=== PATIENT | female | born 1935 | race Caucasian/White ===

== ENCOUNTER → 2016-06-08 | Outpatient (CLI) | payer MEDICARE ==
[~2016-06-08] MED LIST: APIX5TAB PO; ASPI-983 PO; ATOR10TA PO; BENZ100C23 PO; CALC-9 PO; CATHETER FLUSH 10 ML SYR IV PRN; GLIM4TAB PO; LISI40TA PO; REGADENOSON 0.4 MG/5 ML SYR (LEXISCAN) IV ONE
--- OUTSIDE RECORDS SUMMARY | 2016-06-08 09:43 | XMS REPORT ---
Author Author DAMIEN BOSS [facility] Address [address] [place], [place] [id number] Care Team Providers Care Manager Commission Name Role Phone Gail BOSS PCP Unavailable Allergies and Adverse Reactions Name Reaction Notes PENICILLINS Bactrim DS face swells SULFA (SULFONAMIDES) face swells Levaquin itching Plan of Treatment Not available. Medications Active Name Start Date Estimated Completion Date SIG Comments glimepiride 4 mg oral tablet 04/12/2013 TAKE ONE TABLET BY MOUTH EVERY DAY glimepiride 4 mg oral tablet 08/27/2013 TAKE ONE TABLET BY MOUTH EVERY DAY metformin 500 mg oral tablet 10/28/2013 TAKE ONE TABLET BY MOUTH TWICE DAILY WITH MORNING AND EVENING MEALS ReliOn Micro Glucose Monitor miscellaneous mis 12/19/2013 use BID for Diabetes Mellitus II 250.00 ReliOn Glucose Test Strips 12/19/2013 Use BID for Diabetes Mellitus II 250.00 lisinopril 40 mg oral tablet 09/08/2014 TAKE ONE TABLET BY MOUTH ONCE DAILY Contour Test Strips miscellaneous strip 09/30/2014 12/03/2015 USE ONE STRIP TO TEST DAILY. 250.00 glimepiride 4 mg oral tablet 11/03/2014 TAKE ONE TABLET BY MOUTH EVERY DAY Tessalon Perles 100 mg oral capsule 05/25/2015 take 1 capsule (100 mg) by oral route every 4 hours as needed lisinopril 40 mg oral tablet 07/13/2015 TAKE ONE TABLET BY MOUTH ONCE DAILY metformin 500 mg oral tablet 07/13/2015 TAKE ONE TABLET BY MOUTH TWICE DAILY WITH MORNING AND EVENING MEALS Tylenol-Codeine #3 300-30 mg oral tablet 09/14/2015 take 1 - 2 tablets by oral route every 6 hours as needed glimepiride 4 mg oral tablet 10/07/2015 TAKE ONE TABLET BY MOUTH ONCE DAILY Contour Test Strips miscellaneous strip 10/22/2015 USE ONE ONCE DAILY furosemide 40 mg oral tablet 11/18/2015 01/17/2016 take 1 tablet (40 mg) by oral route once daily for 30 days potassium chloride 10 mEq oral capsule, extended release 11/18/2015 take 1 capsule by oral route daily Name Start Date Expiration Date SIG Comments Zithromax Z-Brendan 250 mg oral tablet 02/17/2010 02/22/2010 take 2 tablets (500 mg) by oral route once daily for 1 day then 1 tablet (250 mg) by oral route once daily for 4 days Janumet 50-1,000 mg oral tablet 05/03/2010 06/02/2010 1BID - TAKE ONE TABLET BY MOUTH TWICE DAILY Colestid 5 gram oral packet 08/24/2010 11/22/2010 FF MIX ONE PACKET IN 3 OUNCES (90ML) OF LIQUID AND DRINK DAILY DIRECTED - MIX ONE PACKET IN 3 OUNCES (90ML ) OF LIQUID AND DRINK DAILY Questran 4 gram oral powder in packet 03/31/2011 04/30/2011 take 1 packet (4 gram) dissolved in 2 to 6 ounces of water or noncarbonated beverage by oral route 2 times per day for 30 days Cipro 500 mg oral tablet 01/10/2012 01/10/2012 take 1 tablet (500 mg) by oral route 2 times per day Mucinex 600 mg oral tablet extended release 12hr 01/10/2012 01/20/2012 take 1 tablet (600 mg) by oral route every 12 hours for 10 days lisinopril 10 mg oral tablet 03/20/2012 04/19/2012 TAKE ONE TABLET BY MOUTH EVERY DAY clindamycin HCl 300 mg oral capsule 03/30/2012 04/09/2012 take 1 capsule by oral route 3 times a day for 10 days Zithromax Z-Brendan 250 mg oral tablet 06/19/2012 06/24/2012 take 2 tablets (500 mg ) by oral route once daily for 1 day then 1 tablet (250 mg) by oral route once daily for 4 days glimepiride 4 mg oral tablet 10/29/2012 02/26/2013 take 1 tablet (4 mg) by oral route once daily metformin 500 mg oral tablet 10/29/2012 10/29/2012 take 1 tablet (500 mg) by oral route 2 times per day with morning and evening meals Cipro 500 mg oral tablet 01/01/2013 take 1 tablet (500 mg) by oral route 2 times per day Zithromax Z-Brendan 250 mg oral tablet 04/12/2013 04/17/2013 take 2 tablets ( 500 mg) by oral route once daily for 1 day then 1 tablet (250 mg) by oral route once daily for 4 days Zithromax Z-Brendan 250 mg oral tablet 07/29/2013 take 2 tablets (500 mg) by oral route once daily for 1 day then 1 tablet (250 mg) by oral route once daily for 4 days Celexa 10 mg oral tablet 12/26/2013 03/26/2014 take 1 tablet (10 mg) by oral route once daily for 30 days lisinopril 40 mg oral tablet 01/15/2014 07/14/2014 take 1 tablet (40 mg) by oral route once daily for 30 days Zithromax Z-Brendan 250 mg oral tablet 02/21/2014 02/26/2014 take 2 tablets (500 mg) by oral route once daily for 1 day then 1 tablet (250 mg) by oral route once daily for 4 days Zithromax Z-Brendan 250 mg oral tablet 05/01/2014 05/06/2014 take 2 tablets (500 mg ) by oral route once daily for 1 day then 1 tablet (250 mg) by oral route once daily for 4 days Levaquin 500 mg oral tablet 10/17/2014 10/22/2014 take 1 tablet (500 mg) by oral route once daily x 5 days Ventolin HFA 90 mcg/actuation inhalation HFA aerosol inhaler 10/17/20142014 inhale 1 puff (90 mcg) by inhalation route every 4-6 hours as needed for 7 days Zithromax Z-Brendan 250 mg oral tablet 10/28/2014 11/02/2014 take 2 tablets (500 mg ) by oral route once daily for 1 day then 1 tablet (250 mg) by oral route once daily for 4 days Aspir-81 81 mg oral tablet,delayed release (DR/EC) 11/15/2014 11/10/2015 take 1 tablet (81 mg) by oral route once daily for 30 days Zithromax Z-Brendan 250 mg oral tablet 01/26/2015 01/31/2015 take 2 tablets (500 mg) by oral route once daily for 1 day then 1 tablet (250 mg) by oral route once daily for 4 days Bactrim DS 800-160 mg oral tablet 02/26/2015 03/08/2015 take 1 tablet by oral route 2 times a day for 10 days orphenadrine citrate 100 mg oral tablet extended release 09/25/2015 10/25/2015 take 1 tablet (100 mg) by oral route 2 times per day in the morning and evening for 10 days Discontinued Name Start Date Discontinued Date SIG Comments metformin 500 mg oral tablet 08/01/2011 09/29/2011 TAKE ONE TABLET BY MOUTH TWICE DAILY WITH MORNING AND EVENING MEALS Flonase 50 mcg/actuation nasal spray,suspension 09/29/2011 03/12/2012 spray 1 spray in each nostril by intranasal route 2 times per day Celexa 20 mg oral tablet 09/29/2011 03/12/2012 take 1 tablet (20 mg) by oral route once daily Tradjenta 5 mg oral tablet 09/29/2011 03/12/2012 take 1 tablet (5 mg) by oral route once daily Bactrim DS 800-160 mg oral tablet 03/12/2012 03/19/2012 take 1 tablet by oral route 2 times a day Zyrtec 10 mg oral tablet 12/28/2012 10/17/2014 take 1 tablet (10 mg) by oral route once daily in the evening for allergies / cough promethazine-codeine 6.25-10 mg/5 mL oral syrup 12/28/2012 10/17/2014 take 5 milliliters by oral route every 4-6 hours as needed, not to exceed 30 mL in 24 hours furosemide 20 mg oral tablet 10/21/2013 10/17/2014 take 1 tablet (20 mg) by oral route once daily glimepiride 4 mg oral tablet 01/28/2014 10/17/2014 TAKE ONE TABLET BY MOUTH EVERY DAY Flonase 50 mcg/actuation nasal spray,suspension 02/03/2014 10/17/2014 inhale 1 spray (50 mcg) in each nostril by intranasal route 2 times per day clonidine HCl 0.1 mg oral tablet 03/12/2014 10/17/2014 TAKE ONE TABLET BY MOUTH THREE TIMES DAILY FOR ELEVATED BLOOD PRESSURE Phenergan-Codeine 6.25-10 mg/5 mL oral syrup 05/01/2014 10/17/2014 take 5 milliliters by oral route 4 times a day albuterol sulfate 2.5 mg /3 mL (0.083 %) inhalation solution for nebulization 05/01/2014 10/17/2014 inhale 3 milliliters (2.5 mg) by nebulization route 4 times per day as needed for bronchitis Cipro 500 mg oral tablet 01/22/2015 10/29/2015 take 1 tablet (500 mg) by oral route 2 times per day promethazine-codeine 6.25-10 mg/5 mL oral syrup 05/08/2015 10/29/2015 take 5 milliliters by oral route every 4-6 hours as needed, not to exceed 30 mL in 24 hours Zithromax Z-Brendan 250 mg oral tablet 05/25/2015 10/29/2015 take 2 tablets (500 mg ) by oral route once daily for 1 day then 1 tablet (250 mg) by oral route once daily for 4 days Problem List Description Status Onset Diabetes Mellitus, Type II Active Hyperlipidemia Active Congestive heart failure Active 04/02/2012 Osteoarthrosis, generalized, multiple sites Active 06/04/2012 Depressive Disorder Active 01/19/2013 Edema Active 01/19/2013 Peripheral edema Active 10/21/2013 History of TIA (transient ischemic attack) Active 11/15/2014 Lumbar spondylitis Active 09/16/2015 Degenerative disc disease, lumbar Active 09/16/2015 Noncompliance Active 11/21/2015 Morbid obesity due to excess calories Active 11/21/2015 Vital Signs Date Time BP-Sys(mm[Hg] BP-Bernadette(mm[Hg]) HR(bpm) RR(rpm) Temp WT HT HC BMI BSA BMI Percentile O2 Sat(%) 11/19/2015 3:50:00 PM 140 mmHg 84 mmHg 76 bpm 18 rpm 97.2 F 232 lbs 64 in 39.82 kg/m2 2.18 m2 96 % 11/17/2015 1:53:00 PM 138 mmHg 84 mmHg 65 bpm 18 rpm 98.1 F 238 lbs 64 in 40.8522 kg/m 2.2079 m 96 % 10/29/2015 5:23:00 PM 132 mmHg 76 mmHg 62 bpm 18 rpm 97.6 F 236.437 lbs 98 % 09/15/2015 11:00:00 AM 178 mmHg 80 mmHg 64 bpm 18 rpm 98 F 237 lbs 95 % 09/07/2015 3:08:00 PM 168 mmHg 80 mmHg 72 bpm 18 rpm 98.1 F 239 lbs 64 in 41.02 kg/m2 2.21 m2 95 % 08/27/2015 10:37:00 AM 144 mmHg 86 mmHg 80 bpm 18 rpm 248 lbs 63 in 43.9308 kg/m 2.2361 m 99 % 05/25/2015 11:03:00 AM 155 mmHg 80 mmHg 60 bpm 18 rpm 98.6 F 247 lbs 96 % 02/24/2015 1:59:00 PM 148 mmHg 70 mmHg 66 bpm 18 rpm 99.1 F 244 lbs 63 in 43.2222 kg/m 2.218 m 97 % 01/21/2015 8:38:00 AM 148 mmHg 80 mmHg 58 bpm 18 rpm 97.3 F 241 lbs 63 in 42.69 kg/m2 2.20 m2 98 % 11/11/2014 9:41:00 AM 130 mmHg 80 mmHg 60 bpm 18 rpm 96.4 F 227 lbs 62 in 41.5184 kg/m 2.1223 m 98 % 10/27/2014 8:44:00 AM 140 mmHg 70 mmHg 56 bpm 20 rpm 97.7 F 232 lbs 62.5 in 41.76 kg/m2 2.15 m2 98 % 10/17/2014 5:56:00 PM 134 mmHg 66 mmHg 60 bpm 18 rpm 97.7 F 230.25 lbs 63 in 40.7865 kg/m 2.1546 m 97 % 05/05/2014 10:48:00 AM 17 mmHg 72 mmHg 65 bpm 18 rpm 96.6 F 230.375 lbs 63 in 40.81 kg/m2 2.16 m2 97 % 04/30/2014 10:27:00 AM 116 mmHg 60 mmHg 108 bpm 20 rpm 96.8 F 227 lbs 63 in 40.2108 kg/m 2.1394 m 98 % 02/03/2014 2:55:00 PM 130 mmHg 60 mmHg 50 bpm 18 rpm 98.1 F 243.5 lbs 63 in 43.13 kg/m2 2.22 m2 97 % 01/21/2014 11:27:00 AM 184 mmHg 82 mmHg 62 bpm 20 rpm 98.6 F 246 lbs 63 in 43.5765 kg/m 2.2271 m 98 % 01/06/2014 10:31:00 AM 138 mmHg 60 mmHg 68 bpm 20 rpm 98.5 F 246 lbs 63 in 43.58 kg/m2 2.23 m2 96 % 10/18/2013 9:35:00 AM 150 mmHg 72 mmHg 68 bpm 20 rpm 96 F 253 lbs 63 in 44.8165 kg/m 2.2586 m 94 % 10/01/2013 2:15:00 PM 148 mmHg 72 mmHg 74 bpm 22 rpm 97 F 253 lbs 63 in 44.82 kg/m2 2.26 m2 94 % 07/29/2013 9:10:00 AM 142 mmHg 64 mmHg 64 bpm 22 rpm 97.6 F 248.312 lbs 63 in 43.9861 kg/m 2.2375 m 96 % 01/18/2013 10:14:00 AM 150 mmHg 64 mmHg 64 bpm 20 rpm 97.9 F 256 lbs 63 in 45.35 kg/m2 2.27 m2 96 % 01/01/2013 10:32:00 AM 144 mmHg 68 mmHg 68 bpm 20 rpm 97.3 F 254 lbs 63 in 44.9936 kg/m 2.263 m 95 % 12/04/2012 8:37:00 AM 150 mmHg 70 mmHg 70 bpm 20 rpm 95.8 F 252.437 lbs 63 in 44.72 kg/m2 2.26 m2 94 % 09/03/2012 3:13:00 PM 158 mmHg 60 mmHg 68 bpm 18 rpm 97.7 F 262 lbs 63 in 46.4107 kg/m 2.2984 m 95 % 06/01/2012 8:50:00 AM 150 mmHg 70 mmHg 70 bpm 20 rpm 95.3 F 254.312 lbs 63 in 45.05 kg/m2 2.26 m2 96 % 04/02/2012 8:36:00 AM 136 mmHg 68 mmHg 60 bpm 18 rpm 94.3 F 252 lbs 63 in 44.6393 kg/m 2.2541 m 98 % 03/19/2012 8:52:00 AM 144 mmHg 72 mmHg 60 bpm 18 rpm 96.4 F 250.25 lbs 63 in 44.33 kg/m2 2.25 m2 98 % 03/12/2012 9:00:00 AM 150 mmHg 60 mmHg 60 bpm 18 rpm 96.8 F 244 lbs 63 in 43.2222 kg/m 2.218 m 97 % 01/02/2012 1:49:00 PM 130 mmHg 60 mmHg 60 bpm 18 rpm 97.2 F 240 lbs 63 in 42.51 kg/m2 2.20 m2 96 % 11/28/2011 3:29:00 PM 170 mmHg 80 mmHg 64 bpm 237 lbs 63 in 41.9822 kg/m 2.186 m 09/29/2011 9:25:00 AM 144 mmHg 78 mmHg 56 bpm 228 lbs 63 in 40.39 kg/m2 2.14 m2 98 % 06/29/2011 9:21:00 AM 176 mmHg 82 mmHg 64 bpm 231 lbs 63 in 40.9194 kg/m 2.1581 m 12/06/2010 8:53:00 AM 132 mmHg 70 mmHg 62 bpm 96 % 08/04/2010 9:20:00 AM 144 mmHg 70 mmHg 60 bpm 220 lbs 97 % 07/23/2009 11:14:00 AM 132 mmHg 70 mmHg 76 bpm 229 lbs 06/08/2009 2:30:00 PM 132 mmHg 80 mmHg 72 bpm 235.375 lbs 97 % Social History Name Description Comments Tobacco Never smoker denies alcohol use History of Procedures Date Ordered Description Order Status 08/05/2015 12:00 AM COMPLETE CBC W/AUTO DIFF WBC Returned 08/05/2015 12:00 AM COMPREHEN METABOLIC PANEL Returned 08/05/2015 12:00 AM LIPID PANEL Returned 08/05/2015 12:00 AM GLYCOSYLATED HEMOGLOBIN TEST Returned 08/05/2015 12:00 AM MICROALBUMIN QUANTITATIVE Reviewed 08/05/2015 12:00 AM MAMMOGRAM BOTH BREASTS Returned 09/07/2015 12:00 AM EXTREMITY STUDY Returned 09/08/2015 12:00 AM MRI LUMBAR SPINE W/O DYE Returned 09/15/2015 12:00 AM INJECT SPINE LUMBAR/SACRAL Returned 09/15/2015 12:00 AM Toradol 60 Mg [facility]#4227-0205-23 Reviewed 05/24/2011 12:00 AM ROUTINE VENIPUNCTURE Reviewed 05/24/2011 12:00 AM COMPLETE CBC W/AUTO DIFF WBC Returned 05/24/2011 12:00 AM COMPREHEN METABOLIC PANEL Returned 05/24/2011 12:00 AM LIPID PANEL Returned 05/24/2011 12:00 AM GLYCOSYLATED HEMOGLOBIN TEST Returned 05/24/2011 12:00 AM MICROALBUMIN SEMIQUANT Returned 11/24/2015 12:00 AM X-RAY EXAM OF HIP Returned 03/02/2012 12:00 AM ROUTINE VENIPUNCTURE Reviewed 03/02/2012 12:00 AM COMPLETE CBC W/AUTO DIFF WBC Reviewed 03/02/2012 12:00 AM COMPREHEN METABOLIC PANEL Reviewed 03/02/2012 12:00 AM LIPID PANEL Reviewed 03/02/2012 12:00 AM GLYCOSYLATED HEMOGLOBIN TEST Reviewed 03/02/2012 12:00 AM MICROALBUMIN SEMIQUANT Reviewed 06/01/2012 12:00 AM ROUTINE VENIPUNCTURE Reviewed 06/01/2012 12:00 AM COMPREHEN METABOLIC PANEL Reviewed 06/01/2012 12:00 AM GLYCOSYLATED HEMOGLOBIN TEST Reviewed 09/03/2012 12:00 AM THER/PROPH/DIAG INJ SC/IM Reviewed 09/03/2012 12:00 AM Lasix, Up to 20 Mg [facility]#1436-0942-48 Reviewed 09/07/2012 12:00 AM ROUTINE VENIPUNCTURE Reviewed 09/07/2012 12:00 AM COMPREHEN METABOLIC PANEL Reviewed 07/29/2013 12:00 AM THER/PROPH/DIAG INJ SC/IM Reviewed 07/29/2013 12:00 AM Decadron, 8 Mg [facility]# [address]-73 Reviewed 07/29/2013 12:00 AM Depo-Medrol, Per 80 Mg [facility]#4405-2575-06 Reviewed 08/16/2013 12:00 AM COMPLETE CBC W/AUTO DIFF WBC Reviewed 08/16/2013 12:00 AM COMPREHEN METABOLIC PANEL Reviewed 08/16/2013 12:00 AM GLYCOSYLATED HEMOGLOBIN TEST Reviewed 08/16/2013 12:00 AM LIPID PANEL Reviewed 08/16/2013 12:00 AM ROUTINE VENIPUNCTURE Reviewed 08/16/2013 12:00 AM Dietary Consult Reviewed 08/05/2010 12:00 AM ROUTINE VENIPUNCTURE Reviewed 08/05/2010 12:00 AM COMPLETE CBC W/AUTO DIFF WBC Reviewed 08/05/2010 12:00 AM COMPREHEN METABOLIC PANEL Reviewed 08/05/2010 12:00 AM LIPID PANEL Reviewed 08/05/2010 12:00 AM GLYCOSYLATED HEMOGLOBIN TEST Reviewed 08/26/2014 12:00 AM COMPLETE CBC W/AUTO DIFF WBC Returned 08/26/2014 12:00 AM COMPREHEN METABOLIC PANEL Returned 08/26/2014 12:00 AM GLYCOSYLATED HEMOGLOBIN TEST Returned 08/26/2014 12:00 AM LIPID PANEL Returned 08/26/2014 12:00 AM ROUTINE VENIPUNCTURE Reviewed 10/27/2014 12:00 AM THER/PROPH/DIAG INJ SC/IM Reviewed 10/27/2014 12:00 AM Decadron, Per 1 Mg [facility]# [address]-62 Reviewed 10/27/2014 12:00 AM Depo-Medrol, Per 80 Mg [facility]#8939-3203-65 Reviewed 11/13/2014 12:00 AM EXTRACRANIAL BILAT STUDY Returned 12/06/2010 12:00 AM THER/PROPH/DIAG INJ SC/IM Reviewed 12/06/2010 12:00 AM Decadron Inj.1mg-(Zeyad) [facility] #[id number] Reviewed 12/06/2010 12:00 AM Depo-Medrol 80 Mg Im/St Zeyad [facility] [id number] Reviewed Results Summary Data and Description Results 08/05/2010 4:04 PM TRIGLYCERIDES 153.0 mg/dLCHOLESTEROL 233.0 mg/dLHDL 54.0 mg/ dLLDL 150.0 mg/dLGLYCOHEMOGLOBIN A1C 6.50 %WBC 6.1 RBC 4.56 HGB 13.40 g/dLHCT 40.20 %MCV 88.0 fLMCH 29.40 pgMCHC 33.30 g/dLRDW CV 13.70 %MPV 10.60 fLPLT 320 % NEUT 49.20 %%LYMP 40.50 %%MONO 6.70 %%EOS 2.80 %%BASO 0.80 %#NEUT 3.01 #LYMP 2.48 #MONO 0.41 #EOS 0.17 #BASO 0.05 GLUCOSE 131.0 mg/dLSODIUM 139.0 mmol/ LPOTASSIUM 4.40 mmol/LCHLORIDE 101.0 mmol/LCO2 26.0 mmol/LBUN 10.0 mg/ dLCREATININE 0.70 mg/dLSGOT/AST 28.0 IU/LSGPT/ALT 21.0 IU/LALK PHOS 77.0 IU/ LTOTAL PROTEIN 6.70 g/dLALBUMIN 4.10 g/dLTOTAL BILI 0.40 mg/dLCALCIUM 9.50 mg/ dLeGFR >60 mL/min/1.73 m2 05/24/2011 4:00 PM WBC 4.5 RBC 4.58 HGB 13.60 g/dLHCT 40.30 %MCV 88.0 fLMCH 29.70 pgMCHC 33.70 g/dLRDW CV 13.10 %MPV 11.0 fLPLT 309 %NEUT 47.90 %%LYMP 40.70 %%MONO 8.10 %%EOS 2.60 %%BASO 0.70 %#NEUT 2.17 #LYMP 1.85 #MONO 0.37 #EOS 0.12 #BASO 0.03 CREAT UR 31.50 mg/dLMICROALBUMIN UR 9.0 ug/mLALB:CREAT RATIO 29 TRIGLYCERIDES 138.0 mg/dLCHOLESTEROL 216.0 mg/dLHDL 53.0 mg/dLLDL (CALC) 135.0 mg/dLGLUCOSE 144.0 mg/dLSODIUM 139.0 mmol/LPOTASSIUM 4.40 mmol/LCHLORIDE 102.0 mmol/LCO2 28.0 mmol/LBUN 10.0 mg/dLCREATININE 0.70 mg/dLSGOT/AST 25.0 IU/LSGPT/ ALT 24.0 IU/LALK PHOS 82.0 IU/LTOTAL PROTEIN 6.50 g/dLALBUMIN 4.0 g/dLTOTAL BILI 0.40 mg/dLCALCIUM 8.80 mg/dLeGFR >60 mL/min/1.73 [id number] A1C 6.80 % 03/02/2012 2:18 PM CREAT UR 18.10 mg/dLMICROALBUMIN UR 1.0 ug/mLALB:CREAT RATIO 6 WBC 5.0 RBC 4.53 HGB 13.30 g/dLHCT 39.70 %MCV 88.0 fLMCH 29.40 pgMCHC 33.50 g/dLRDW CV 13.70 %MPV 10.10 fLPLT 329 %NEUT 46.20 %%LYMP 41.90 %%MONO 7.90 %%EOS 3.20 %%BASO 0.80 %#NEUT 2.29 #LYMP 2.08 #MONO 0.39 #EOS 0.16 #BASO 0.04 GLUCOSE 129.0 mg/dLSODIUM 140.0 mmol/LPOTASSIUM 4.70 mmol/LCHLORIDE 107.0 mmol/LCO2 26.0 mmol/LBUN 10.0 mg/dLCREATININE 0.70 mg/dLSGOT/AST 29.0 IU/LSGPT/ ALT 25.0 IU/LALK PHOS 84.0 IU/LTOTAL PROTEIN 6.80 g/dLALBUMIN 3.80 g/dLTOTAL BILI 0.40 mg/dLCALCIUM 9.0 mg/dLeGFR 60 TRIGLYCERIDES 119.0 mg/dLCHOLESTEROL 235.0 mg/dLHDL 55.0 mg/dLLDL (CALC) 156.0 mg/dLGLYCOHEMOGLOBIN A1C 6.90 % 06/01/2012 3:40 PM GLUCOSE 159.0 mg/dLSODIUM 140.0 mmol/LPOTASSIUM 4.40 mmol/ LCHLORIDE 105.0 mmol/LCO2 25.0 mmol/LBUN 15.0 mg/dLCREATININE 0.70 mg/dLSGOT/ AST 35.0 IU/LSGPT/ALT 34.0 IU/LALK PHOS 88.0 IU/LTOTAL PROTEIN 6.50 g/dLALBUMIN 3.80 g/dLTOTAL BILI 0.40 mg/dLCALCIUM 8.70 mg/dLeGFR 60 GLYCOHEMOGLOBIN A1C 7.20 % 09/03/2012 12:00 AM Diabetic Foot Exam Diabetic foot examination Colorectal Discussed options with Pt Urinary Incontinence Assessed Yes Diabetic Foot Exam Diabetic foot examination 09/07/2012 2:12 PM GLUCOSE 184.0 mg/dLSODIUM 140.0 mmol/LPOTASSIUM 4.30 mmol/ LCHLORIDE 102.0 mmol/LCO2 26.0 mmol/LBUN 15.0 mg/dLCREATININE 0.70 mg/dLSGOT/ AST 37.0 IU/LSGPT/ALT 38.0 IU/LALK PHOS 86.0 IU/LTOTAL PROTEIN 6.50 g/dLALBUMIN 3.60 g/dLTOTAL BILI 0.50 mg/dLCALCIUM 8.60 mg/dLeGFR 60 12/04/2012 9:03 AM Diabetic Foot Exam Diabetic foot examination 08/16/2013 5:26 PM GLUCOSE 98.0 mg/dLSODIUM 138.0 mmol/LPOTASSIUM 4.40 mmol/ LCHLORIDE 106.0 mmol/LCO2 25.0 mmol/LBUN 12.0 mg/dLCREATININE 0.70 mg/dLSGOT/ AST 33.0 IU/LSGPT/ALT 34.0 IU/LALK PHOS 74.0 IU/LTOTAL PROTEIN 6.30 g/dLALBUMIN 3.50 g/dLTOTAL BILI 0.30 mg/dLCALCIUM 8.20 mg/dLeGFR 60 TRIGLYCERIDES 142.0 mg/ dLCHOLESTEROL 248.0 mg/dLHDL 76.0 mg/dLLDL (CALC) 144.0 mg/dLWBC 5.5 RBC 4.43 HGB 13.0 g/dLHCT 39.70 %MCV 90.0 fLMCH 29.30 pgMCHC 32.70 g/dLRDW CV 13.80 %MPV 10.60 fLPLT 286 %NEUT 48.0 %%LYMP 40.70 %%MONO 8.20 %%EOS 2.60 %%BASO 0.50 %# NEUT 2.63 #LYMP 2.23 #MONO 0.45 #EOS 0.14 #BASO 0.03 HGB A1C 7.20 %Est Avg Glucose 159.9 mg/dL 08/26/2014 4:18 PM GLUCOSE 159.0 mg/dLSODIUM 139.0 mmol/LPOTASSIUM 4.30 mmol/ LCHLORIDE 105.0 mmol/LCO2 23.0 mmol/LBUN 8.0 mg/dLCREATININE 0.70 mg/dLSGOT/AST 34.0 IU/LSGPT/ALT 31.0 IU/LALK PHOS 78.0 IU/LTOTAL PROTEIN 6.50 g/dLALBUMIN 3.0 g/dLTOTAL BILI 0.90 mg/dLCALCIUM 8.90 mg/dLeGFR >60 mL/min/1.73 [id number] 144.0 mg/dLCHOLESTEROL 227.0 mg/dLHDL 50.0 mg/dLLDL (CALC) 148.0 mg/dLHGB A1C 6.90 %Est Avg Glucose 151.3 mg/dLWBC 5.1 RBC 4.15 HGB 12.50 g/dLHCT 37.70 %MCV 91.0 fLMCH 30.10 pgMCHC 33.20 g/dLRDW CV 13.30 %MPV 10.30 fLPLT 309 %NEUT 51.30 %%LYMP 38.80 %%MONO 6.40 %%EOS 2.90 %%BASO 0.60 %#NEUT 2.63 #LYMP 1.99 #MONO 0.33 #EOS 0.15 #BASO 0.03 08/18/2015 8:50 AM WBC 4.0 RBC 4.51 HGB 13.30 g/dLHCT 40.90 %MCV 91.0 fLMCH 29.50 pgMCHC 32.50 g/dLRDW CV 13.10 %MPV 9.40 fLPLT 231 %NEUT 47.90 %%LYMP 37.50 %%MONO 8.50 %%EOS 4.80 %%BASO 1.0 %#NEUT 1.92 #LYMP 1.50 #MONO 0.34 #EOS 0.19 #BASO 0.04 GLUCOSE 145.0 mg/dLSODIUM 142.0 mmol/LPOTASSIUM 4.20 mmol/ LCHLORIDE 107.0 mmol/LCO2 27.0 mmol/LBUN 9.0 mg/dLCREATININE 0.70 mg/dLSGOT/AST 35.0 IU/LSGPT/ALT 31.0 IU/LALK PHOS 82.0 IU/LTOTAL PROTEIN 6.60 g/dLALBUMIN 4.0 g/dLTOTAL BILI 0.40 mg/dLCALCIUM 9.30 mg/dLeGFR >60 mL/min/1.73mTRIGLYCERIDES 103.0 mg/dLCHOLESTEROL 213.0 mg/dLHDL 51.0 mg/dLLDL (CALC) 141.0 mg/ dLHemoglobin A1c 7.20 % History Of Immunizations Not available. History of Past Illness Name Date of Onset Comments Hyperlipidemia, unspecified Jun 08 2009 2:32PM Diabetes Mellitus, Type II Jun 08 2009 2:32PM Abdominal Pain Jun 08 2009 2:32PM Diarrhea Jun 08 2009 2:32PM Eustachian Tube Dysfunction Jun 08 2009 2:32PM Depressive Disorder Jul 23 2009 11:16AM Diabetes Mellitus, Type II Jul 23 2009 11:16AM Diabetes Mellitus, Type II Hyperlipidemia Congestive heart failure 04/02/2012 Osteoarthrosis, generalized, multiple sites 06/04/2012 Murmur Depressive Disorder 01/19/2013 Edema 01/19/2013 Peripheral edema 10/21/2013 History of TIA (transient ischemic attack) 11/15/2014 Lumbar spondylitis 09/16/2015 Degenerative disc disease, lumbar 09/16/2015 Noncompliance 11/21/2015 Morbid obesity due to excess calories 11/21/2015 Diabetes Mellitus, Type II Aug 05 2010 8:52AM Hyperlipidemia Aug 05 2010 8:52AM Diabetes Mellitus, Type II Aug 04 2010 9:20AM Hyperlipidemia, unspecified Aug 04 2010 9:20AM General Medical Exam, Adult Aug 04 2010 9:20AM Pain in joint; Right Hip Dec 06 2010 8:52AM Pain in joint; shoulder region, Left Dec 06 2010 8:52AM Nasopharyngitis, Acute (Common Cold) Dec 06 2010 8:52AM Hypertension May 24 2011 9:02AM Diabetes Mellitus, Type II May 24 2011 9:02AM Hyperlipidemia May 24 2011 9:02AM Essential Hypertension Jun 29 2011 9:22AM Diabetes Mellitus, Type II Jun 29 2011 9:22AM Headache Jun 29 2011 9:22AM Depressive Disorder Jun 29 2011 9:22AM Obesity Jun 29 2011 9:22AM Diabetes Mellitus, Type II Sep 29 2011 9:27AM Depressive Disorder Sep 29 2011 9:27AM Seasonal Allergies Sep 29 2011 9:27AM Eustachian Tube Dysfunction Sep 29 2011 9:27AM Diabetes Mellitus, Type II Nov 28 2011 3:33PM Hyperlipidemia, unspecified Nov 28 2011 3:33PM Cerebrovascular Accident (CVA) Nov 28 2011 3:33PM Depressive Disorder Nov 28 2011 3:33PM Fatigue Nov 28 2011 3:33PM General Medical Exam, Adult Nov 28 2011 3:33PM Essential Hypertension Jan 02 2012 1:53PM Diabetes Mellitus, Type II Jan 02 2012 1:53PM Hyperlipidemia, unspecified Jan 02 2012 1:53PM Hypertension Mar 02 2012 8:41AM Diabetes Mellitus, Type II Mar 02 2012 8:41AM Hyperlipidemia Mar 02 2012 8:41AM Essential Hypertension Mar 12 2012 9:00AM Diabetes Mellitus, Type II Mar 12 2012 9:00AM Hyperlipidemia, unspecified Mar 12 2012 9:00AM Cellulitis Mar 12 2012 9:00AM General Medical Exam, Adult Mar 12 2012 9:00AM Cellulitis Mar 19 2012 8:53AM Congestive Heart Failure Apr 02 2012 8:37AM Diabetes Mellitus, Type II Apr 02 2012 8:37AM Hyperlipidemia, unspecified Apr 02 2012 8:37AM Osteoarthrosis, generalized, multiple sites Apr 02 2012 8:37AM Edema Apr 02 2012 8:37AM Cellulitis Apr 02 2012 8:37AM Diabetes Mellitus, Type II Jun 01 2012 8:51AM Hyperlipidemia, unspecified Jun 01 2012 8:51AM Osteoarthrosis, generalized, multiple sites Jun 01 2012 8:51AM Edema Jun 01 2012 8:51AM Obesity Jun 01 2012 8:51AM Congestive Heart Failure Sep 03 2012 3:14PM Diabetes Mellitus, Type II Sep 03 2012 3:14PM Edema Sep 03 2012 3:14PM Exercise Counseling Sep 03 2012 3:14PM Dietary Counseling Sep 03 2012 3:14PM Diabetes Mellitus, Type II Sep 07 2012 9:29AM Congestive Heart Failure Dec 04 2012 8:37AM Diabetes Mellitus, Type II Dec 04 2012 8:37AM Exercise Counseling Dec 04 2012 8:37AM Dietary Counseling Dec 04 2012 8:37AM Hyperlipidemia Dec 04 2012 8:37AM Cough Jan 01 2013 10:33AM Bronchitis, Acute Jan 01 2013 10:33AM Post-nasal drainage Jan 01 2013 10:33AM Congestive Heart Failure Jan 18 2013 10:15AM Diabetes Mellitus, Type II Jan 18 2013 10:15AM Hyperlipidemia, unspecified Jan 18 2013 10:15AM Osteoarthrosis, generalized, multiple sites Jan 18 2013 10:15AM Depressive Disorder Jan 18 2013 10:15AM Edema Jan 18 2013 10:15AM Exercise Counseling Jan 18 2013 10:15AM Dietary Counseling Jan 18 2013 10:15AM Post-nasal drainage Jul 29 2013 9:10AM Upper Respiratory Infection Jul 29 2013 9:10AM Allergic Rhinitis Jul 29 2013 9:10AM Congestive Heart Failure Aug 16 2013 8:44AM Edema Aug 16 2013 8:44AM Diabetes Mellitus, Type II Aug 16 2013 8:44AM Hyperlipidemia Aug 16 2013 8:44AM FPC medication use Aug 16 2013 8:44AM Diabetes Mellitus, Type II Aug 16 2013 1:18PM Knee pain, acute, right Oct 01 2013 2:15PM Knee abrasion, right, initial encounter Oct 01 2013 2:15PM Congestive Heart Failure Oct 18 2013 9:35AM Eustachian Tube Dysfunction, Bilateral Oct 18 2013 9:35AM Peripheral edema Oct 18 2013 9:35AM Essential Hypertension Jan 06 2014 10:31AM Diabetes Mellitus, Type II Jan 06 2014 10:31AM Tendinitis Jan 06 2014 10:31AM Obesity Jan 06 2014 10:31AM Dietary Counseling Jan 06 2014 10:31AM Exercise Counseling Jan 06 2014 10:31AM Shoulder pain, right Jan 06 2014 10:31AM Physical deconditioning Jan 06 2014 10:31AM Peripheral edema Jan 06 2014 10:31AM Hyperlipidemia Jan 06 2014 10:31AM Essential Hypertension Jan 21 2014 11:27AM Non compliance w medication regimen Jan 21 2014 11:27AM Essential Hypertension Feb 03 2014 2:56PM Eustachian tube dysfunction, bilateral Feb 03 2014 2:56PM Cough Apr 30 2014 10:28AM Bronchitis, Acute Apr 30 2014 10:28AM Influenza Apr 30 2014 10:28AM Cough May 05 2014 10:49AM Bronchitis, Acute May 05 2014 10:49AM Respiratory System And Chest Symptoms May 05 2014 10:49AM Congestive Heart Failure Aug 26 2014 10:10AM Edema Aug 26 2014 10:10AM Diabetes Mellitus, Type II Aug 26 2014 10:10AM Hyperlipidemia Aug 26 2014 10:10AM exterminator helper termite medication use Aug 26 2014 10:10AM Bronchitis, Acute Oct 17 2014 5:58PM Sinusitis, Acute Oct 17 2014 5:58PM Seasonal Allergies Oct 27 2014 8:45AM Respiratory System And Chest Symptoms Oct 27 2014 8:45AM TIA (transient ischemic attack) Nov 13 2014 3:03PM Congestive Heart Failure Nov 11 2014 9:42AM Edema Nov 11 2014 9:42AM Obesity Nov 11 2014 9:42AM History of TIA (transient ischemic attack) Nov 11 2014 9:42AM Peripheral edema Nov 11 2014 9:42AM Diabetes Mellitus, Type II Nov 11 2014 9:42AM Hyperlipidemia Nov 11 2014 9:42AM Cough Jan 21 2015 8:38AM Bronchitis, Acute Jan 21 2015 8:38AM Moderate Acute Cough Feb 24 2015 1:59PM Acute bronchitis, unspecified organism Feb 24 2015 1:59PM Moderate Acute Post-nasal drainage Feb 24 2015 1:59PM Mild Acute Upper Respiratory Infection Feb 24 2015 1:59PM Mild Acute Nasopharyngitis, Acute (Common Cold) May 25 2015 11:03AM Mild Acute Post-nasal drainage May 25 2015 11:03AM Grieving b 2015 11:03AM Reactive depression May 25 2015 11:03AM Insomnia, unspecified type b 2015 11:03AM Diabetes Mellitus, Type II Aug 05 2015 9:38AM Hyperlipidemia Aug 05 2015 9:38AM Screening for breast cancer Aug 05 2015 9:38AM Morbid obesity due to excess calories Aug 31 2015 11:29AM Moderate Acute Shoulder joint painful on movement, left Aug 31 2015 11:29AM Moderate Acute Shoulder tendonitis, left Aug 31 2015 11:29AM Mild Acute Back strain, initial encounter Aug 31 2015 11:29AM Thigh pain Sep 07 2015 2:38PM Moderate Acute Lower extremity pain, inferior, right Sep 07 2015 3:09PM Acute Radicular pain Unresponsive to treatment Sep 08 2015 2:37PM Lumbar spondylosis Sep 15 2015 9:25AM Type 2 diabetes mellitus with hyperglycemia Sep 15 2015 11:01AM Right-sided low back pain with right-sided sciatica Sep 15 2015 11:01AM Morbid obesity due to excess calories Sep 15 2015 11:01AM Dietary Counseling Sep 15 2015 11:01AM Exercise Counseling Sep 15 2015 11:01AM History of TIA (transient ischemic attack) Sep 15 2015 11:01AM Osteoarthrosis, generalized, multiple sites Sep 15 2015 11:01AM Lumbar spondylitis Sep 15 2015 11:01AM Degenerative disc disease, lumbar Sep 15 2015 11:01AM Elevated blood pressure Sep 15 2015 11:01AM Cellulitis of left lower leg Improving Oct 29 2015 5:25PM Essential hypertension with goal blood pressure less than 130/80 Nov 17 2015 1:54PM Type 2 diabetes mellitus with hyperglycemia Nov 17 2015 1:54PM Chronic right-sided low back pain with right-sided sciatica Nov 17 2015 1: 54PM Obesity Nov 17 2015 1:54PM Dietary Counseling Nov 17 2015 1:54PM Exercise Counseling Nov 17 2015 1:54PM Degenerative disc disease, lumbar Nov 17 2015 1:54PM Lumbar spondylitis Nov 17 2015 1:54PM Peripheral edema Nov 17 2015 1:54PM Type 2 diabetes mellitus with hyperglycemia Nov 19 2015 3:51PM Acute right-sided low back pain with right-sided sciatica Nov 19 2015 3:51PM Morbid obesity due to excess calories Nov 19 2015 3:51PM Dietary Counseling Nov 19 2015 3:51PM Exercise Counseling Nov 19 2015 3:51PM Degenerative disc disease, lumbar Nov 19 2015 3:51PM History of TIA (transient ischemic attack) Nov 19 2015 3:51PM Lumbar spondylitis Nov 19 2015 3:51PM Osteoarthrosis, generalized, multiple sites Nov 19 2015 3:51PM Peripheral edema Nov 19 2015 3:51PM Hyperlipidemia Nov 19 2015 3:51PM Mild Noncompliance Nov 19 2015 3:51PM Hip pain Nov 24 2015 2:04PM Payers Insurance Name Company Name Plan Name Plan Number Policy Number Policy Group Number Start Date Medicare Part A Medicare RHC [id number] N/A Medicare Part B Medicare Of [place] [id number] Sunday, 2008 Medicare Part A Medicare Part A [id number] N/A Medicare Part A Medicare - Lab/Xray [id number] N/A History of Encounters Visit Date Visit Type Provider 11/19/2015 Office visit DAMIEN SNYDER 11/17/2015 Office visit DAMIEN SNYDER 10/29/2015 Office visit Blaise Camacho OPERATIONS ADMINISTRATIVE ASSISTANT 09/15/2015 Office visit DAMIEN BOSS PA 09/07/2015 Office visit DAMIEN BOSS PA 08/27/2015 Office visit DAMIEN BOSS PA 05/25/2015 Office visit DAMIEN BOSS PA 02/24/2015 Office visit DAMIEN BOSS PA 01/21/2015 Office visit DAMIEN BOSS PA 11/11/2014 Office visit DAMIEN BOSS PA 10/27/2014 Office visit 10/27/2014 Office visit DAMIEN BOSS PA 10/17/2014 Office visit Shanique Sorensen ASHLEY 08/26/2014 Office visit DAMIEN BOSS PA 05/05/2014 Office visit DAMIEN SNYDER 04/30/2014 Office visit DAMIEN SNYDER 04/19/2014 [facility] Gail Bai MD 02/03/2014 Office visit DAMIEN BOSS PA 01/21/2014 Office visit DAMIEN SNYDER 01/06/2014 Office visit DAMIEN SNYDER 01/01/2014 [facility] Gail Bai MD 10/18/2013 Office visit DAMIEN SNYDER 10/01/2013 Office visit DAMIEN BOSS PA 08/16/2013 Office visit DAMIEN SNYDER 07/29/2013 Office visit DAMIEN SNYDER 04/09/2013 Records Request DAMIEN BOSS PA 01/18/2013 Office visit DAMIEN BOSS PA 01/01/2013 Office visit DAMIEN BOSS PA 12/04/2012 Office visit DAMIEN BOSS PA 09/07/2012 Office visit DAMIEN BOSS PA 09/03/2012 Office visit DAMIEN BOSS PA 06/01/2012 Office visit DAMIEN BOSS PA 04/02/2012 Office visit DAMIEN BOSS PA 03/19/2012 Office visit DAMIEN BOSS PA 03/12/2012 Office visit DAMIEN BOSS PA 03/02/2012 Office visit DAMIEN BOSS PA 01/02/2012 Office visit DAMIEN BSOS PA 11/28/2011 Office visit DAMIEN BOSS PA 09/29/2011 Office visit DAMIEN BOSS PA 06/29/2011 Office visit DAMIEN BOSS PA 05/24/2011 Office visit DAMIEN SNYDER 12/06/2010 Office visit Damien HANNAC 08/05/2010 Office visit Damien HANNAC 08/04/2010 Office visit Damien HANNAC 07/23/2009 Office visit Damien HANNAC 06/08/2009 Office visit Damien HANNAC 05/18/2009 Laboratory Rose Barrett MD 05/15/2009 Hospital Rose Barrett MD 01/08/2009 Office visit Damien Boss PA-C 12/17/2008 Office visit DAMIEN SNYDER
[2016-06-08 13:03] VITALS: BP 142/64
--- NOTE | 2016-06-09 08:30 | STRESS TEST ---
PROCEDURE PHYSICIAN: ISHAN DEL ROSARIO DATE OF PROCEDURE: 06/08/2016 LEXISCAN MYOVIEW STRESS TEST REPORT: INDICATION FOR THE PROCEDURE: Atrial fibrillation. BASELINE HEART RATE: 65 BASELINE BLOOD PRESSURE: 142/64 BASELINE EKG: Atrial fibrillation with no ischemic changes. IN SUMMARY: The patient was injected with 10.51 mCi of technetium 99 Myoview and the resting images were obtained. Then the patient received 0.4 mg of Lexiscan followed by 29.3 mCi of technetium 99 Myoview. Throughout the test, there were no EKG changes. The resting and stress images were reviewed and compared in the short axis, horizontal long axis, and vertical long axis views. Review of the images showed breast attenuation affecting the quality of the images. There is questionable ischemia involving the basal to mid anterior wall and anterolateral wall. SSS 5, SDS 5, TID value 0.92. On the gated images, the left ventricle appeared to be normal size with mild hypokinesia noted diffusely. Calculated ejection fraction 48%. Gated images are unreliable due to underlying atrial fibrillation. IN CONCLUSION: 1. The patient tolerated Lexiscan well. 2. Breast attenuation affecting the quality of the images with questionable mild ischemia involving the basal to mid anterior wall and anterolateral wall. 3. Normal left ventricular size with mild diffuse left ventricular hypokinesia. Calculated ejection fraction 48%. Gated images are unreliable due to underlying atrial fibrillation. Job ID: [id number] Dictated Date: 06/08/2016 18:25:01 Skilled Nursing Facility Counselor Date: 06/09/2016 08:27:19 / alley
== END ==
LOC: CARD 09:36
PROVIDERS: ATTEND Physician Assistant
DX: I48.91 Unspecified atrial fibrillation (principal); I35.0 Nonrheumatic aortic (valve) stenosis; I50.9 Heart failure, unspecified; R60.9 Edema, unspecified; R06.02 Shortness of breath
CPT/HCPCS: 78452; 93017

== ENCOUNTER 2016-06-22 09:06 | Day surgery (SDC) | payer MEDICARE ==
[~2016-06-22] VITALS: Ht 160 cm; Wt 101.2 kg
[2016-06-22] VITALS (13 sets, daily range): BP systolic 115–141; BP diastolic 56–99
[2016-06-22] MEDS ORDERED: NS IV 1000 ML 1,000 ML ONE (09:53)
[2016-06-22] MEDS ORDERED: HEParin (CATH LAB) 2,000 ML IV ONE (09:53)
[2016-06-22] MEDS ORDERED: LIDOCAINE 1% INJ 20 ML (XYLOCAINE) VIAL ONE (09:53)
[2016-06-22 10:39] LABS: MEAN PLATELET VOLUME 9.3 FL (7.4-10.4); RED BLOOD COUNT 4.34 10^6/uL (4.35-5.85); RED CELL DISTRIBUTION WIDTH 13.6 % (10.0-14.5)
[2016-06-22 10:51] LABS: PROTHROMBIN TIME PATIENT 12.8 SEC (12.2-14.7)
[2016-06-22 11:00] LABS: ALANINE AMINOTRANSFERASE 18 U/L (0-55); ALBUMIN 3.8 G/DL (3.2-4.5); ANION GAP 11 MMOL/L (5-14); ASPARTATE AMINO TRANSFERASE 27 U/L (5-34); BILIRUBIN,TOTAL 0.5 MG/DL (0.1-1.0); BLOOD UREA NITROGEN 11 MG/DL (7-18); BUN/CREATININE RATIO 14; CALCIUM 8.6 MG/DL (8.5-10.1); CARBON DIOXIDE 25 MMOL/L (21-32); CHLORIDE 106 MMOL/L (98-107); CHOLESTEROL 209 MG/DL (< 200); CREATININE SERUM 0.81 MG/DL (0.60-1.30); DIRECT LDL 143 MG/DL (1-129); GFR ESTIMATED > 60; GLUCOSE 144 MG/DL (70-105); POTASSIUM 4.1 MMOL/L (3.6-5.0); SODIUM 142 MMOL/L (135-145); TOTAL PROTEIN 6.7 G/DL (6.4-8.2); TRIGLYCERIDES 110 MG/DL (<150); VLDL CHOLESTEROL 22 MG/DL (5-40)
--- NOTE | 2016-06-22 11:03 | Diagnostic Imaging Report ---
EXAMINATION: Portable upright radiograph of the chest. INDICATION: Dyspnea. Hypertension. FINDINGS: The lungs are clear. The heart size is moderately enlarged. No effusion or pneumothorax. The mediastinum and aman appear unremarkable. IMPRESSION: Cardiomegaly. Clear lungs. Dictated by: Dictated on workstation # [id number]
[2016-06-22] MEDS ORDERED: LISI40TA PO (11:22)
[2016-06-22] MEDS ORDERED: APIX5TAB PO (11:22)
[2016-06-22] MEDS ORDERED: ASPI-983 PO (11:22)
[2016-06-22] MEDS ORDERED: GLIM4TAB PO (11:22)
[2016-06-22] MEDS ORDERED: BENZ100C23 PO (11:22)
[2016-06-22] MEDS ORDERED: CALC-9 PO (11:22)
[2016-06-22] MEDS ORDERED: NS IV 1000 ML 1,000 ML IV SCH ×2 (11:45→13:17)
[2016-06-22] MEDS ORDERED: FLU TRIvalent (5 YOA+) 2016-17 (AFLURIA) 0.5 ML IM ONE (11:45)
[2016-06-22] MEDS ORDERED: MIDAZOLAM 5 MG/5 ML (VERSED) VIAL ONE (12:15)
[2016-06-22] MEDS ORDERED: fentaNYL INJECTION 100 MCG/2 ML AMP ONE (12:15)
--- NOTE | 2016-06-22 12:44 | Cardiac Procedure Note-CS/ASA ---
Pre-Procedure Note Pre-Op Procedure Note H&P Reviewed The H&P was reviewed, patient examined and no changes noted. Date H&P Reviewed: Jun 22, 2016 Time H&P Reviewed: 12:44 Conscious Sedation Pre-Proced Time Reviewed: 12:44 ASA Class: 3 Airway Mallampati Classification: (soboba appropriate class) I. II. III, IV Lungs Heart ASA score ASA 1: a normal healthy patient ASA 2: a patient with a mild systemic disease (mid diabetes, controlled hypertension, obesity X ASA 3: a patient with a severe systemic disease that limits activity (angina , COPD, prior Myocardial infarction) ASA 4: a patient with an incapacitating disease that is a constant threat to life (CHF, renal failure) ASA 5: a moribund patient not expected to survive 24 hrs. (ruptured aneurysm) ASA 6: a declared brain patient whose organs are being harvested. For emergent operations, add the letter E after the classification Grade 3 Sedation Plan: Analgesia, Amnesia, Plan communicated to team members, Discussed options with patient/fam, Discussed risks with patient/fam Note The patient is an appropriate candidate to undergo the planned procedure, sedation, and anesthesia. The patient immediately re-assessed prior to indication. ISHAN DEL ROSARIO MD Jun 22, 2016 12:44
--- NOTE | 2016-06-22 13:19 | Discharge Inst-Post CATH ---
Discharge Inst-CATH Post Cardiac Cath D/C Inst Follow Up/Plan Appointment with Dr Key's office in 2-4 weeks CARDIAC CATH DISCHARGE INSTRUCTIONS *Hold Metformin for 48 hours post heart cath. ACTIVITY * Go Home directly and rest. * Limit activity of the leg (or wrist if it was used) for 7 days including aerobics, swimming, jogging, bicycling, etc. * Restrict stair-climbing for 7 days if possible, if not, climb up with your non -cath leg, then bring together on the same step. * Avoid lifting, pushing, pulling or excessive movement of the affected extremity for 7 days. * Customary sexual activity may be resumed after 2 days-use caution not to use a position that strains or causes pain to the affected extremity. * No driving for 24 hours. * NO SMOKING. * Avoid straining for bowel movements for 7 days. * Gentle walking on level ground is allowed. * Returning to work will depend on the type of procedure and the results. Your doctor will discuss this with you. CALL YOUR DOCTOR FOR ANY OF THE FOLLOWING: *If bleeding from the puncture site occurs- Apply gentle pressure to site with clean cloth and call your doctor or EMS. * If a knot or lump forms under the skin, increases in size, or causes pain. * If bruising appears to be worsening or moving further down your leg instead of disappearing. * Temperature above 101 F. CARE OF YOUR GROIN INCISION; * Bruising or purple discoloration of the skin near the puncture site is common. * You may shower only, no bathtub bathing for 5 days. Be careful to avoid slipping as your leg may feel stiff. * If a closure device was used on your femoral artery, please see the attached guide regarding care of the device and your leg. * REMOVE the dressing from your groin the next day after your procedure in the shower. CARE OF YOUR WRIST INCISION; * Bruising or purple discoloration of the skin near the puncture site is common. * You may shower. * DO NOT submerge wrist. * Remove dressing in 24 hours. ISHAN KEY MD Jun 22, 2016 13:19
[2016-06-22] MEDS ORDERED: ATOR10TA PO (13:24)
[2016-06-22] MEDS ORDERED: PATIENT MAY USE OWN MEDS, ALL PO SCH (13:30)
--- NOTE | 2016-06-23 09:09 | DISCHARGE SUMMARY ---
PROCEDURE PHYSICIAN: ISHAN DEL ROSARIO DATE OF PROCEDURE: 06/22/2016. REFERRING PHYSICIAN: Dr. Jose Perez BRIEF HISTORY: Mrs. Garcia is an 81-year-old lady with history of hypertension, hyperlipidemia and diabetes mellitus. The patient had an abnormal stress test with anterior wall ischemia. She was scheduled for left heart catheterization, possible PTCA. PROCEDURE NOTE: After explaining the procedure to the patient, all pros and cons were explained. All questions were answered. The patient signed a consent, then she was placed on the cardiac catheterization laboratory. The right groin was prepped in a sterile fashion. Local anesthesia applied right groin. 6-Bahamian sheath was placed in the right femoral artery. I had difficulty advancing the J-wire through the iliac artery. I used. It was slightly tortuous. Combination of right and left Jim catheter were used to access the right and left coronary system. Multiple views were obtained. Pigtail catheter advanced to the left ventricular cavity. Pressure was measured, no left ventriculogram was done. Pullback LV to aorta was done. Aortic arch angiogram was done. At the end of the procedure, sheath was removed. Mynx device deployed. Hemostasis achieved. FINDINGS: HEMODYNAMIC: LV pressure 106/11, end-diastolic pressure of 11, aortic pressure 103/47, mean of 66. ANATOMY: 1. LEFT MAIN CORONARY ARTERY: The left main coronary artery is bifurcating to left anterior descending and left circumflex artery with no obstructive disease. 2. LEFT ANTERIOR DESCENDING ARTERY: The left anterior descending artery is moderate in size with mild disease distally. Nonobstructive disease. 3. LEFT CIRCUMFLEX ARTERY: The left circumflex artery is moderate in size with mild disease. Nonobstructive disease. 4. RIGHT CORONARY ARTERY: The right coronary artery is moderate in size with no obstructive disease. Mild disease distally. 5. LEFT VENTRICULOGRAM: No left ventriculogram was done. Pressure was normal. 6. AORTIC ARCH ANGIOGRAM: Aortic arch angiogram showed the aortic arch is normal in size. No dissection, no aneurysm was noted. Mild atherosclerotic disease was noted. CONCLUSION: 1. Mild coronary artery disease, nonobstructive disease. 2. Normal left ventricular end-diastolic pressure. 3. Normal aortic arch and great neck vessels including the innominate artery, left subclavian and left carotid artery. DISCUSSION AND RECOMMENDATION: Medical therapy is recommended. No intervention is warranted. FINAL DIAGNOSES: 1. Coronary artery disease. 2. Hypertension. 3. Hyperlipidemia. 4. Diabetes mellitus. Job ID: [id number] Dictated Date: 06/22/2016 13:24:18 Barrel Roller Operator Date: 06/23/2016 09:08:29/jeannine
== END 2016-06-22 18:00 | disposition home or self-care (01) ==
LOC: CATH 09:06
PROVIDERS: ATTEND Internal Medicine Cardiovascular Disease
DX: R94.39 Abnormal result of other cardiovascular function study (principal); I25.10 Atherosclerotic heart disease of native coronary artery without angina pectoris; I10 Essential (primary) hypertension; E78.5 Hyperlipidemia, unspecified; E11.9 Type 2 diabetes mellitus without complications; I48.0 Paroxysmal atrial fibrillation; E66.9 Obesity, unspecified; Z68.39 Body mass index [BMI] 39.0-39.9, adult; Z79.01 Long term (current) use of anticoagulants; Z79.899 Other long term (current) drug therapy
CPT/HCPCS: 36221; 36415; 71010; 80053; 80061; 85027; 85610; 85730; 87081; 93458